=== PATIENT | male | born 1940 | race Asian ===

== ENCOUNTER 2017-05-30 02:00 | Emergency (ER) | payer OTHER ==
[2017-05-30 05:27] VITALS: BP 100/58
== END 2017-05-30 05:27 | disposition home or self-care (01) ==
LOC: ED 02:00
DX: J09.X2 Influenza due to identified novel influenza A virus with other respiratory manifestations (principal); E78.00 Pure hypercholesterolemia, unspecified; I10 Essential (primary) hypertension; E11.9 Type 2 diabetes mellitus without complications; N40.0 Benign prostatic hyperplasia without lower urinary tract symptoms; Z79.84 Long term (current) use of oral hypoglycemic drugs; Z86.79 Personal history of other diseases of the circulatory system
CPT/HCPCS: 87804; J7613; J7644; Q0092